=== PATIENT | female | born 1985 | race Asian ===

== ENCOUNTER → 2017-09-22 10:17 | Outpatient (CLI) | payer OTHER, SELFPAY ==
--- NOTE | 2017-09-22 10:25 | US_ITS ---
US gallbladder Ordering Physician: Gurinder Roth MD Patient Age: 32 years: Female HISTORY: ITS.REASON: RUQ PAIN Abdominal pain TECHNIQUE: Ultrasound right upper quadrant MW COMPARISON :CT abdomen and pelvis 09/10/2015. FINDINGS Pancreas. Unremarkable. Fairly good visualization. Head, body and medial tail pancreas grossly unremarkable Liver. Unremarkable by ultrasound. (Prior CT 2016 showed a small <10 millimeter cyst near inferior tip right lobe liver. But this was not identified not noted on today's CT ultrasound.) Common duct normal diameter. No biliary ductal dilatation Gallbladder. No gallstones. Only scant sludge and debris. Unimpressive. Upper normal weakness gallbladder wall.. Right kidney appears normal. 8.8 cm length with no hydronephrosis nor mass. IMPRESSION: ========= 1. Gallbladder with No gallstones.. Only Perhaps Scant sludge & debris at gallbladder but very unimpressive. Common duct normal. Liver on remarkable by ultrasound
== END ==
PROVIDERS: PCP Internal Medicine Adolescent Medicine; Visit Provider Internal Medicine Adolescent Medicine
DX: R10.11 Right upper quadrant pain (principal)
CPT/HCPCS: 76705

== ENCOUNTER → 2021-02-10 10:17 | Outpatient (CLI) | payer OTHER, SELFPAY ==
[2021-02-10 10:49] LABS: Basophils % 0.7 % (0.1-2.0); Eosinophils # 0.1 K/mm3 (0.0-0.4); Eosinophils % 1.6 % (0.1-12.0); Hemoglobin 13.9 g/dL (12.2-16.2); Lymphocytes # 1.9 K/mm3 (0.7-4.5); Lymphocytes % 34.7 % (10-50); Mean Corpuscular Hemoglobin 30.7 pg (27.0-31.2); Mean Platelet Volume 7.9 fl (7.4-10.4); Monocytes # 0.2 K/mm3 (0.1-1.0); Monocytes % 4.2 % (1.7-9.3); Neutrophils # 3.2 K/mm3 (1.8-7.8); Neutrophils % 58.8 % (37.0-80.0); Platelet Count 290 K/mm3 (142-424); Red Blood Count 4.51 M/mm3 (4.20-5.40); Red Cell Distribution Width 12.4 % (11.5-17.5); White Blood Count 5.4 K/mm3 (4.8-10.8)
[2021-02-10 11:23] LABS: Alanine Aminotransferase 15 U/L (12-78); Albumin Level 4.4 g/dl (3.5-5.0); Albumin/Globulin Ratio 1.5 (1.1-1.8); Alkaline Phosphatase 59 U/L (38-126); Anion Gap 13.3 mEq/L (5-15); Aspartate Amino Transferase 24 U/L (14-36); Bilirubin,Total 0.5 mg/dl (0.2-1.3); Blood Urea Nitrogen 11 mg/dl (7-17); Carbon Dioxide 29 mmol/L (22.0-30.0); Chloride 103 mmol/L (98-107); Estimated Glomerular Filt Rate 113 ml/min (>60); GFR (African American) 137 ML/MIN (>60); Globulin 2.9 g/dL (1.3-3.2); Glucose 90 mg/dl (74-100); Potassium 4.3 mmoL/L (3.5-5.1); Sodium 141 mmol/L (136-145); Total Protein,Serum 7.3 g/dl (6.3-8.2)
== END ==
PROVIDERS: Visit Provider Nurse Practitioner Family
DX: B18.1 Chronic viral hepatitis B without delta-agent (principal)
CPT/HCPCS: 36415; 80053; 85025

== ENCOUNTER → 2021-09-08 08:34 | Outpatient (CLI) | payer OTHER, SELFPAY ==
--- NOTE | 2021-09-08 08:37 | US_ITS ---
FINAL REPORT CLINICAL HISTORY: CHRONIC HEPATITIS FINDINGS: Sonographic images of the right upper quadrant were obtained. The pancreas is partially obscured.The liver has an unremarkable appearance. Stones and sludge are seen within the gallbladder. There is no evidence of biliary ductal dilatation.The common duct measures 4mm. Limited images of the right kidney are unremarkable. IMPRESSION: Stones or sludge within the gallbladder, otherwise unremarkable exam. Reviewed, Interpreted and Dictated by Valdemar Williamson MD Transcribed by Mckenzie Christensen Authenticated by Valdemar Williamson MD on 09/08/2021 10:42:08 AM [facility]
== END ==
PROVIDERS: PCP Internal Medicine Adolescent Medicine; Visit Provider Physician Assistant
DX: B18.1 Chronic viral hepatitis B without delta-agent (principal)
CPT/HCPCS: 76705

== ENCOUNTER 2025-01-29 13:14 | Outpatient (CLI) | payer OTHER, SELFPAY ==
--- OUTSIDE RECORDS SUMMARY | 2025-01-30 10:56 | XMS_ITS | Clinical Summary ---
Author Organization Healthcare Address [address] [place] [address] Care Team Providers Care Construction Sales Representative Name Role Phone Gurinder Roth MD Primary Care Provider + [phone] Medications tenofovir disoproxil fumarate (Viread) 300 MG tablet Take 300 mg by mouth 1 (one) time each day. Active Family History Medical History Relation Name Comments Hepatitis Brother Hepatitis Father Hepatitis Mother Hepatitis Sister Relation Name Status Comments Brother Father Mother Sister Social History Tobacco Use Types Packs/Day Years Used Date Smoking Tobacco: Never Alcohol Use Standard Drinks/Week Comments No 0 (1 standard drink = 0.6 oz pur e alcohol) Comments Unknown Sex and Gender Information Value Date Recorded Sex Assigned at Not on file Legal Sex Female 6:36 PM EDT Gender Identity Not on file Sexual Orientation Not on file Last Filed Vital Signs Vital Sign Reading Time Taken Comments Blood Pressure 96/62 03/06/2019 9:55 AM EDT Pulse 61 03/06/2019 9:55 AM EDT Temperature 36.8 C (98.3 F) 03/06/2019 9:55 AM EDT Respiratory Rate - - Oxygen Saturation - - Inhaled Oxygen Concentration - - Weight 47.2 kg (103 lb 15.9 oz) 020 11:50 AM EDT Height 162.6 cm (5' 4 ) 11/20/2019 11:5 0 AM EDT Body Mass Index 17.85 11/20/2019 11:50 AM EDT Plan of Treatment Health Maintenance Due Date Last Done Comments [facility]-Depression Screening 1984 [facility]-Infant/Child/Adol SDOH Screenings 1984 [facility]-Varicella Vaccines (1 of 2 - 13+ 2-dose series) 1997 [facility]- SDOH Screenings 2002 [facility]-Adult SDOH Screenings 2002 [facility]-DTaP,Tdap,and Td Vaccines (1 - Tdap) 2003 [facility]-Hepatitis B Vaccines (1 of 3 - 19+ 3-dose series) 2003 11/20/2019, 11/20/2019, 03/06/2019, Additional history exists [facility]-Pap Smear 2005 HPV Vaccines (1 - 3-dose SCDM series) 2011 [facility]-Cervical Cancer Screening 2014 [facility]-HPV/Cotest 2014 [facility]-GPDOT-48 Vaccine (1 - 2023-25 season) 2024 [facility]-Influenza Vaccine (#1) 2025 [facility]-Zoster Vaccines (1 of 2) 2034 [facility]-HIB Vaccines Aged Out No longer e ligible based on patient's age to complete this topic [facility]-Hepatitis A Vaccines Aged Out No longer eligible based on patient's age to complete this topic [facility]-IPV Vaccines Aged Out No longer e ligible based on patient's age to complete this topic [facility]-Pneumococcal Vaccine: Pediatrics (0 to 5 Years) and At-Risk Patients (6 to 49 Years) Aged Out No longer eligible based on patient's age to complete this topic [facility]-Rotavirus Vaccines Aged Out No lo nger eligible based on patient's age to complete this topic Care Teams Construction Sales Representative Relationship Specialty Start Date End Date Gurinder Roth MD [address] [place] [id number] PCP - General 11/01/20
== END 2025-01-29 23:59 | disposition home or self-care (01) ==
LOC: LAB.DROPOF 01-30 10:51
PROVIDERS: PCP Nurse Practitioner Family; Visit Provider Nurse Practitioner Family
DX: N39.0 Urinary tract infection, site not specified (principal)
CPT/HCPCS: 87086; 87088; 87186